=== PATIENT | female | born 1975 ===

== ENCOUNTER 2019-10-19 08:45 | Outpatient (RCR) | payer OTHER | END 2019-11-14 | disposition home or self-care (01) | LOC: WSPT | DX: M50.11 Cervical disc disorder with radiculopathy, high cervical region (principal); M51.14 Intervertebral disc disorders with radiculopathy, thoracic region; E66.01 Morbid (severe) obesity due to excess calories; Z68.41 Body mass index [BMI] 40.0-44.9, adult; G35 Multiple sclerosis; E34.8 Other specified endocrine disorders ==